=== PATIENT | male | born 1955 | race African-American/Black ===

== ENCOUNTER 2017-12-21 17:09 | Inpatient (IN) | payer OTHER ==
[~2017-12-21] VITALS: Ht 188 cm; Wt 103.4 kg
[~2017-12-21 17:09] MED LIST: AMLO5TAB7 PO; ENAL10TA PO; GABA300C PO; HYDR-548 PO; TRAM50TA2 PO
[2017-12-21] MEDS ORDERED: IV NS 0.9% 1,000 ML BAG IV ONE (18:30)
[2017-12-21] MEDS ORDERED: diphenhydrAMINE HCL 50 MG/ML VIAL ONE (18:45)
[2017-12-21] MEDS ORDERED: LORAZEPAM INJ 2 MG/ML VIAL ONE (18:46)
[2017-12-21] MEDS ORDERED: PANTOPRAZOLE 40 MG VIAL ONE (18:46)
[2017-12-21] MEDS ORDERED: ONDANSETRON HCL/PF 4 MG/2 ML VIAL IVP PRN (19:00)
[2017-12-21] MEDS ORDERED: Z GUARD REMEDY 2 OZ OINT TP PRN (19:00)
[2017-12-21] MEDS ORDERED: diphenhydrAMINE HCL 50 MG/ML VIAL IV ONE (19:00)
[2017-12-21] MEDS ORDERED: PANTOPRAZOLE 40 MG VIAL IV ONE (19:00)
[2017-12-21] MEDS ORDERED: MORPHINE SULFATE INJ 2 MG/ML DISP.SYRIN IV PRN (19:00)
[2017-12-21] MEDS ORDERED: LORAZEPAM INJ 2 MG/ML VIAL IV ONE (19:00)
[2017-12-21] MEDS ORDERED: MAG HYDROX/AL HYDROX/SIMETH 30 ML UDC PO PRN (19:00)
[2017-12-21] MEDS ORDERED: ACETAMINOPHEN 325 MG TABLET PO PRN (19:00)
[2017-12-21] MEDS ORDERED: MAGNESIUM HYDROXIDE 30 ML UDC PO PRN (19:00)
[2017-12-21 19:21] LABS: BASOPHILS # (AUTO) 0.1 /CMM (0.0-0.2); BASOPHILS % (AUTO) 0.4 % (0.0-2.0); EOSINOPHILS % (AUTO) 1.4 % (0.0-6.0); HEMATOCRIT 27 % (39-51); HEMOGLOBIN 9.3 g/dL (13.5-17.5); LYMPHOCYTES # (AUTO) 4.2 /CMM (0.8-4.8); LYMPHOCYTES % (AUTO) 25.6 % (20.0-44.0); MEAN CORPUSCULAR HGB CONC 34 g/dl (31.0-36.0); MEAN CORPUSCULAR VOLUME 90 fL (80-96); MONOCYTES # (AUTO) 1.5 /CMM (0.1-1.30); MONOCYTES % (AUTO) 9.2 % (2.0-12.0); NEUTROPHILS # (AUTO) 10.6 /CMM (1.8-8.9); NEUTROPHILS % (AUTO) 63.4 % (43.0-81.0); PLATELET COUNT (AUTO) 242 /CMM (150-450); RDW COEFFICIENT OF VARIATION 13.7 (11.5-15.0); RED BLOOD CELL COUNT(AUTO) 3.05 MIL/uL (4.5-6.0); WHITE BLOOD COUNT (AUTO) 16.6 K/uL (4.3-11.0)
[2017-12-21] MEDS ORDERED: LIDOCAINE 2% JEL UROJET 10 ML MM ONE ×2 (19:24→19:30)
[2017-12-21 19:28] LABS: CALCIUM, SERUM 9.4 mg/dL (8.5-10.1); CARBON DIOXIDE 29 mmol/L (21-32); CHLORIDE 102 mmol/L (98-107); CREATININE 0.6 mg/dL (0.6-1.3); GLUCOSE 113 mg/dL (74-106); SODIUM SERUM 137 mmol/L (136-145); UREA NITROGEN, BLOOD 40 mg/dL (7-18)
[2017-12-21 19:32] LABS: INR 1.13 (0.85-1.15)
[2017-12-21 19:34] LABS: ALANINE AMINOTRANSFERASE 62 U/L (12-78); ALBUMIN 3.2 g/dL (3.4-5.0); ALKALINE PHOSPHATASE 46 U/L (46-116); ASPARTATE AMINOTRANSFERASE 60 U/L (15-37); BILIRUBIN,DIRECT 0.5 mg/dL (0.0-0.2); BILIRUBIN,TOTAL 1.1 mg/dL (0.2-1.0); LIPASE 81 U/L (73-393)
[2017-12-21 19:36] LABS: TROPONIN I < 0.017 ng/mL (0.00-0.056)
[2017-12-21 20:23] LABS: APPEARANCE,URINE Clear (CLEAR); BILIRUBIN,URINE Negative (NEGATIVE); BLOOD, URINE Moderate Ery/uL (NEGATIVE); COLOR,URINE Yellow (YELLOW); KETONES,URINE 40 (NEGATIVE); LEUKOCYTE ESTERASE ,URINE Negative (NEGATIVE); NITRITE, URINE Negative (NEGATIVE); PH,URINE 6.5 (5.0-8.0); PROTEIN,URINE Negative (NEGATIVE); UGLUCOSE Negative (NEGATIVE)
[2017-12-21 20:34] LABS: BACTERIA,URINE None seen /HPF (None Seen); SQUAMOUS EPITHELIAL CELL,UR None Seen /HPF (None Seen); WBC,URINE NONE SEEN /HPF (0-3)
[2017-12-21] MEDS ORDERED: IOHEXOL-300 100 ML VIAL IV ONE (20:58)
[2017-12-21] MEDS: PANTOPRAZOLE 40 MG VIAL IV SCH (21:00)
[2017-12-21] MEDS ORDERED: CEFTRIAXONE 1GM BAG (ER ONLY) 1 GM/50 ML PIGGYBACK IV ONE (21:30)
[2017-12-21] MEDS: POTASSIUM CL. PREMIX PERIPHER. 50 ML IV SCH ×3 (22:28→23:58)
[2017-12-21] MEDS ORDERED: CEFTRIAXONE 1 G VIAL ONE (22:34)
[2017-12-21 23:00] VITALS: BP 164/80
[2017-12-21] MEDS: IV NS 0.9% 1,000 ML IV PRN (23:01)
[2017-12-21 23:07] LABS: BASOPHILS # (AUTO) 0.1 /CMM (0.0-0.2); BASOPHILS % (AUTO) 0.4 % (0.0-2.0); EOSINOPHILS % (AUTO) 2.6 % (0.0-6.0); HEMATOCRIT 27 % (39-51); HEMOGLOBIN 9.1 g/dL (13.5-17.5); LYMPHOCYTES # (AUTO) 4.2 /CMM (0.8-4.8); LYMPHOCYTES % (AUTO) 28.7 % (20.0-44.0); MEAN CORPUSCULAR HGB CONC 33 g/dl (31.0-36.0); MEAN CORPUSCULAR VOLUME 93 fL (80-96); MONOCYTES # (AUTO) 1.3 /CMM (0.1-1.30); MONOCYTES % (AUTO) 8.6 % (2.0-12.0); NEUTROPHILS # (AUTO) 8.7 /CMM (1.8-8.9); NEUTROPHILS % (AUTO) 59.7 % (43.0-81.0); PLATELET COUNT (AUTO) 232 /CMM (150-450); RDW COEFFICIENT OF VARIATION 14.1 (11.5-15.0); RED BLOOD CELL COUNT(AUTO) 2.91 MIL/uL (4.5-6.0); WHITE BLOOD COUNT (AUTO) 14.5 K/uL (4.3-11.0)
[2017-12-21 23:18] VITALS: BP 150/80
[2017-12-22] VITALS (29 sets, daily range): BP systolic 111–168; BP diastolic 63–118
[2017-12-22] MEDS: POTASSIUM CL. PREMIX PERIPHER. 50 ML IV SCH ×5 (00:49→14:15)
[2017-12-22] MEDS ORDERED: METOCLOPRAMIDE HCL 10 MG/2 ML VIAL IV ONE (07:00)
[2017-12-22 07:46] LABS: BASOPHILS # (AUTO) 0.1 /CMM (0.0-0.2); BASOPHILS % (AUTO) 0.6 % (0.0-2.0); EOSINOPHILS % (AUTO) 2.7 % (0.0-6.0); HEMATOCRIT 34 % (39-51); HEMOGLOBIN 11.3 g/dL (13.5-17.5); LYMPHOCYTES # (AUTO) 2.2 /CMM (0.8-4.8); LYMPHOCYTES % (AUTO) 20.4 % (20.0-44.0); MEAN CORPUSCULAR HGB CONC 34 g/dl (31.0-36.0); MEAN CORPUSCULAR VOLUME 92 fL (80-96); MONOCYTES # (AUTO) 0.8 /CMM (0.1-1.30); MONOCYTES % (AUTO) 7.7 % (2.0-12.0); NEUTROPHILS # (AUTO) 7.5 /CMM (1.8-8.9); NEUTROPHILS % (AUTO) 68.6 % (43.0-81.0); PLATELET COUNT (AUTO) 214 /CMM (150-450); RDW COEFFICIENT OF VARIATION 15.4 (11.5-15.0); RED BLOOD CELL COUNT(AUTO) 3.63 MIL/uL (4.5-6.0)
[2017-12-22 08:02] LABS: CALCIUM, SERUM 8.9 mg/dL (8.5-10.1); CREATININE 0.7 mg/dL (0.6-1.3); MAGNESIUM 2.2 mg/dL (1.8-2.4); POTASSIUM 3.2 mmol/L (3.5-5.1)
[2017-12-22] MEDS: PANTOPRAZOLE 40 MG VIAL IV SCH ×2 (08:29→21:40)
[2017-12-22] MEDS ORDERED: PANTOPRAZOLE 40 MG VIAL IV SCH (09:00)
[2017-12-22] MEDS ORDERED: K PHOS NEUTRAL 250 MG TABLET PO ONE (11:30)
[2017-12-22] MEDS: SUCRALFATE 1 G/10 ML UDC GT SCH ×3 (11:42→21:40)
[2017-12-22 16:22] LABS: HEMOGLOBIN 9.8 g/dL (13.5-17.5)
[2017-12-22] MEDS: IV NS 0.9% 1,000 ML IV PRN (17:02)
[2017-12-23] VITALS (24 sets, daily range): BP systolic 94–168; BP diastolic 37–127
[2017-12-23 04:23] LABS: BASOPHILS # (AUTO) 0.1 /CMM (0.0-0.2); BASOPHILS % (AUTO) 0.9 % (0.0-2.0); EOSINOPHILS % (AUTO) 3.2 % (0.0-6.0); HEMATOCRIT 28 % (39-51); HEMOGLOBIN 9.6 g/dL (13.5-17.5); LYMPHOCYTES # (AUTO) 2.2 /CMM (0.8-4.8); LYMPHOCYTES % (AUTO) 24.7 % (20.0-44.0); MEAN CORPUSCULAR HGB CONC 34 g/dl (31.0-36.0); MEAN CORPUSCULAR VOLUME 92 fL (80-96); MONOCYTES # (AUTO) 0.8 /CMM (0.1-1.30); MONOCYTES % (AUTO) 8.9 % (2.0-12.0); NEUTROPHILS # (AUTO) 5.5 /CMM (1.8-8.9); NEUTROPHILS % (AUTO) 62.3 % (43.0-81.0); PLATELET COUNT (AUTO) 215 /CMM (150-450); RDW COEFFICIENT OF VARIATION 15.3 (11.5-15.0); RED BLOOD CELL COUNT(AUTO) 3.07 MIL/uL (4.5-6.0); WHITE BLOOD COUNT (AUTO) 8.8 K/uL (4.3-11.0)
[2017-12-23] MEDS: IV NS 0.9% 1,000 ML IV PRN ×2 (05:26→20:54)
[2017-12-23] MEDS: SUCRALFATE 1 G/10 ML UDC GT SCH ×4 (07:56→21:00)
[2017-12-23] MEDS: PANTOPRAZOLE 40 MG VIAL IV SCH ×2 (08:00→21:00)
[2017-12-23] MEDS: AMLODIPINE BESYLATE 5 MG TABLET PO SCH (12:32)
[2017-12-23] MEDS: ENALAPRIL MALEATE (10 MG) 10 MG TABLET PO SCH (12:32)
[2017-12-23] MEDS: MORPHINE SULFATE INJ 4 MG/ML DISP.SYRIN IV PRN (20:50)
[2017-12-24] VITALS: BP 141/73
[2017-12-24] MEDS: MORPHINE SULFATE INJ 4 MG/ML DISP.SYRIN IV PRN ×5 (01:09→18:48)
[2017-12-24 04:00] VITALS: BP 129/66
[2017-12-24 07:28] LABS: BASOPHILS % (AUTO) 0.6 % (0.0-2.0); EOSINOPHILS % (AUTO) 3.9 % (0.0-6.0); HEMATOCRIT 30 % (39-51); HEMOGLOBIN 10.1 g/dL (13.5-17.5); LYMPHOCYTES # (AUTO) 2.2 /CMM (0.8-4.8); MEAN CORPUSCULAR HGB CONC 33 g/dl (31.0-36.0); MEAN CORPUSCULAR VOLUME 94 fL (80-96); MONOCYTES # (AUTO) 0.7 /CMM (0.1-1.30); MONOCYTES % (AUTO) 9.3 % (2.0-12.0); NEUTROPHILS # (AUTO) 4.3 /CMM (1.8-8.9); NEUTROPHILS % (AUTO) 57.2 % (43.0-81.0); PLATELET COUNT (AUTO) 220 /CMM (150-450); RDW COEFFICIENT OF VARIATION 15.8 (11.5-15.0); RED BLOOD CELL COUNT(AUTO) 3.22 MIL/uL (4.5-6.0); WHITE BLOOD COUNT (AUTO) 7.5 K/uL (4.3-11.0)
[2017-12-24 07:40] LABS: CREATININE 0.6 mg/dL (0.6-1.3)
[2017-12-24 08:00] VITALS: BP 144/82
[2017-12-24] MEDS: SUCRALFATE 1 G/10 ML UDC GT SCH ×3 (08:44→16:43)
[2017-12-24] MEDS: AMLODIPINE BESYLATE 5 MG TABLET PO SCH (08:45)
[2017-12-24] MEDS: PANTOPRAZOLE 40 MG VIAL IV SCH ×2 (08:45→20:40)
[2017-12-24] MEDS: ENALAPRIL MALEATE (10 MG) 10 MG TABLET PO SCH (08:45)
[2017-12-24] MEDS: IV NS 0.9% 1,000 ML IV PRN (09:22)
[2017-12-24] MEDS: POTASSIUM CHLORIDE 20 MEQ TAB.PRT.SR PO SCH ×3 (12:58→16:38)
[2017-12-24 16:00] VITALS: BP 140/89
[2017-12-24 20:00] VITALS: BP 152/86
== END 2017-12-24 22:20 | DRG 241 ==
LOC: ER 17:12 → ICU 19:58 → TELE 12-23 17:39 → MED 12-24 08:55
PROVIDERS: ADMIT Internal Medicine; ATTEND Internal Medicine
PROC: 05HY33Z Insertion of Infusion Device into Upper Vein, Percutaneous Approach (ICD-10-PCS; principal; 2017-12-22 10:00)
PROC: 30233N1 Transfusion of Nonautologous Red Blood Cells into Peripheral Vein, Percutaneous Approach (ICD-10-PCS; principal; 2017-12-22 10:00)
PROC: 0DB68ZX Excision of Stomach, Via Natural or Artificial Opening Endoscopic, Diagnostic (ICD-10-PCS; principal; 2017-12-22 10:00)
DX: K26.4 Chronic or unspecified duodenal ulcer with hemorrhage (principal); N17.0 Acute kidney failure with tubular necrosis; R65.11 Systemic inflammatory response syndrome (SIRS) of non-infectious origin with acute organ dysfunction; G93.41 Metabolic encephalopathy; E44.0 Moderate protein-calorie malnutrition; K70.0 Alcoholic fatty liver; K25.4 Chronic or unspecified gastric ulcer with hemorrhage; K29.70 Gastritis, unspecified, without bleeding; K29.80 Duodenitis without bleeding; D62 Acute posthemorrhagic anemia; I10 Essential (primary) hypertension; D72.829 Elevated white blood cell count, unspecified; E87.6 Hypokalemia; F10.10 Alcohol abuse, uncomplicated; G89.4 Chronic pain syndrome; Z68.29 Body mass index [BMI] 29.0-29.9, adult; E88.09 Other disorders of plasma-protein metabolism, not elsewhere classified; F17.210 Nicotine dependence, cigarettes, uncomplicated; F29 Unspecified psychosis not due to a substance or known physiological condition; F32.9 Major depressive disorder, single episode, unspecified; R79.89 Other specified abnormal findings of blood chemistry; G62.9 Polyneuropathy, unspecified
CPT/HCPCS: 36415; 36569; 70450-TC; 71045-TC; 80048-TC; 80076-TC; 80305; 81000-TC; 83605-TC; 83690-TC; 83735-TC; 84100-TC; 84484-TC; 85025-TC; 85027-TC; 85730-TC; 86850-TC; 86921-TC; 87040-TC; 87081-TC; 88305-TC; 88313-TC; 88342; A4606; C9113; G0480; J0696; J1200; J2060; J2270; J2704; J2765; J3480; J3490; J7030; J7042; J7050; P9016-BL; Q9967; Z7610